=== PATIENT | female | born 1985 | race Caucasian/White ===

== ENCOUNTER 2016-06-29 10:47 | Emergency (ER) | payer MEDICAID ==
[2016-06-29 10:51] VITALS: BP 120/73; PULSE 77; RESP 16; TEMP 97.7; O2SAT 96
--- NOTE | 2016-06-29 11:11 | EDPHY ---
H & P Time Seen by Provider: 06/29/16 10:53 HPI/ROS: CHIEF COMPLAINT: Difficulty swallowing HISTORY OF PRESENT ILLNESS: Patient presents with difficulty swallowing starting yesterday. Patient takes her medications at 2:00 p.m. and 10:00 p.m.. She is not 100% sure on the timing of it starting. Does not remember having difficulty swallowing a pill yesterday. Today she describes having difficulty swallowing food but can swallow liquid. She was able to take an oral 600 mg ibuprofen today. When she swallows she feels like it gets stuck in her upper chest behind her sternum and radiates to her chest and back. She does not have symptoms unless she swallows. REVIEW OF SYSTEMS: Eye: no change in vision ENT: no sore throat Cardiac: no chest pain or syncope Pulmonary: no cough or SOB Abdomen: no vomiting, diarrhea, abdominal pain Musculoskeletal: no back pain Skin: no rash Neuro: no headache Constitutional: no fever : no urinary symptoms A comprehensive 10 point review of systems is otherwise negative aside from elements mentioned in the history of present illness. PAST MEDICAL HISTORY: Bipolar disorder, right ear surgery Social history: [place], no family history of gastrointestinal problems. No family history of aortic dissection. General Appearance: Alert and conversant, cooperative. Looks well, nontoxic. Eyes: No scleral icterus. ENT, Mouth: Normal mucous membranes. Left tonsil slightly larger than right, no trismus, no pharyngeal erythema, uvula midline, no exudate. Respiratory: Normal respiratory effort, breath sounds equal, lungs are clear to auscultation. No stridor. Cardiovascular: Regular rate and rhythm. Gastrointestinal: Abdomen is soft and non tender. Neurological: Alert and oriented x3. Normally conversant. Face symmetric, normal movement and sensation in all extremities. Skin: Warm and dry, no rashes. Musculoskeletal: Normal range of motion of the neck. No external swelling seen. Psychiatric: Not agitated. Emergency Department course/MDM: Possible congenital stricture versus food obstruction versus pill esophagitis. Plan for Gastrografin swallow study discussed and consented. 1136: Went back to reassess patient and she had left the emergency department. Smoking Status: Current every day smoker Constitutional: Initial Vital Signs Temperature (C) 36.5 C 06/29/16 10:48 Heart Rate 77 06/29/16 10:48 Respiratory Rate 16 06/29/16 10:48 Blood Pressure 120/73 06/29/16 10:48 O2 Sat (%) 96 06/29/16 10:48 O2 Delivery Mode Room Air Allergies/Adverse Reactions: nickel Allergy (Mild, Uncoded 06/29/16 10:51) Rash Home Medications: Medication Instructions Recorded Diazepam [Valium 5 MG (*)] 5 mg PO 06/29/16 Gabapentin [Neurontin 300 MG (*)] 300 mg PO HS 06/29/16 Shirley Carbonate [Shirley 300 mg PO 06/29/16 Carbonate Cap 300 mg (*)] Lurasidone HCl [Latuda] 20 mg PO DAILY 06/29/16 Departure - Departure Disposition: Against Medical Advice Clinical Impression: Dysphagia Qualifiers: Dysphagia type: esophageal phase Qualified Code(s): R13.14 - Dysphagia, pharyngoesophageal phase Condition: Good Referrals: [facility] [Other] - As per Instructions
== END 2016-06-29 11:30 | disposition left against medical advice (07) ==
DX: R13.14 Dysphagia, pharyngoesophageal phase (principal); F17.200 Nicotine dependence, unspecified, uncomplicated